=== PATIENT | female | born 2000 | race African-American/Black ===

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

== ENCOUNTER 2018-02-23 14:37 | Outpatient (CLI) | payer MEDICAID ==
[2018-02-23 15:43] LABS: APPEARANCE,URINE CLEAR; BILIRUBIN,URINE NEGATIVE (NEGATIVE); COLOR,URINE YELLOW; GLUCOSE, URINE NEGATIVE (NEGATIVE); KETONES,URINE 20 mg/dL (NEGATIVE); LEUKOCYTE ESTERASE,URINE LARGE (NEGATIVE); NITRITE,URINE NEGATIVE (NEGATIVE); PROTEIN,URINE NEGATIVE (NEGATIVE); URINE SPECIFIC GRAVITY 1.008; UROBILINOGEN,URINE NEGATIVE mg/dL (<2.0)
[2018-02-23 15:51] LABS: URINE AMPHETAMINES SCREEN NEGATIVE; URINE BARBITURATES SCREEN NEGATIVE; URINE BENZODIAZEPINES SCREEN NEGATIVE; URINE COCAINE SCREEN NEGATIVE; URINE MARIJUANA (THC) SCREEN NEGATIVE; URINE METHADONE SCREEN NEGATIVE; URINE PHENCYCLIDINE SCREEN NEGATIVE
== END 2018-02-23 16:10 | disposition home or self-care (01) ==
LOC: LC 14:37
PROVIDERS: ATTEND Obstetrics & Gynecology Gynecology
DX: O02.1 Missed abortion (principal); Z3A.20 20 weeks gestation of pregnancy
CPT/HCPCS: 80307; 81001

== ENCOUNTER 2018-02-26 10:48 | Inpatient (IN) | payer MEDICAID ==
[2018-02-26] MEDS ORDERED: PROMETHAZINE HCL INJ 25 MG/1 ML VIAL IV PRN (11:26)
[2018-02-26] MEDS ORDERED: MORPHINE SULFATE 10 MG/ML INJ IV PRN (11:26)
[2018-02-26 12:19] LABS: APPEARANCE,URINE SLIGHTLY-CLOUDY; BILIRUBIN,URINE NEGATIVE (NEGATIVE); COLOR,URINE YELLOW; GLUCOSE, URINE NEGATIVE (NEGATIVE); KETONES,URINE NEGATIVE (NEGATIVE); LEUKOCYTE ESTERASE,URINE LARGE (NEGATIVE); NITRITE,URINE NEGATIVE (NEGATIVE); PROTEIN,URINE NEGATIVE (NEGATIVE); URINE SPECIFIC GRAVITY 1.017; UROBILINOGEN,URINE NEGATIVE mg/dL (<2.0)
[2018-02-26] MEDS: RINGERS SOLUTION,LACTATED 1,000 ML IV PRN ×3 (12:20→19:46)
[2018-02-26 12:34] LABS: URINE AMPHETAMINES SCREEN NEGATIVE; URINE BARBITURATES SCREEN NEGATIVE; URINE BENZODIAZEPINES SCREEN NEGATIVE; URINE COCAINE SCREEN NEGATIVE; URINE MARIJUANA (THC) SCREEN NEGATIVE; URINE METHADONE SCREEN NEGATIVE; URINE PHENCYCLIDINE SCREEN NEGATIVE
[2018-02-26 13:31] LABS: ABSOLUTE EOSINOPHILS # (AUTO) 0.3 10^3/uL (0.0-0.6); ABSOLUTE LYMPHOCYTES (AUTO) 2.1 10^3/uL (0.5-4.7); ABSOLUTE MONOCYTES (AUTO) 0.8 10^3/uL (0.1-1.4); ABSOLUTE NEUT (AUTO) 8.2 10^3/uL (1.7-8.2); BASOPHILS % (AUTO) 0.3 % (0-2); EOSINOPHILS % (AUTO) 2.3 % (0-6); HEMATOCRIT 29.4 % (36.0-47.0); HEMOGLOBIN 10.2 g/dL (12.0-15.5); LYMPHOCYTES % (AUTO) 18.6 % (13-45); MEAN CORPUSCULAR HGB CONC 34.5 g/dL (32.0-36.0); MEAN CORPUSCULAR VOLUME 93 fl (80-97); PLATELET COUNT 310 10^3/uL (150-450); RED BLOOD COUNT 3.17 10^6/uL (3.72-5.28); RED CELL DISTRIBUTION WIDTH 13.8 % (11.5-14.0); SEGMENTED NEUTROPHILS % (AUTO) 71.8 % (42-78); TOTAL CELLS COUNTED % (AUTO) 100 %; WHITE BLOOD COUNT 11.4 10^3/uL (4.0-10.5)
--- NOTE | 2018-02-26 13:35 | Admission Physical ---
Datetime Report Generated by CPN: 02/26/2018 13:35 CURRENT ADMISSION Hx Assessment: The History has been Reviewed and is Current Chief Complaint Other: IUFD at 20 wks, pt sent over from the office for IOL Indication for Induction: Demise Admit Impression : Induction of Labor Admit Plan: Admit to Unit ALLERGIES Medication Allergies: No Medication Allergies: No Known Allergies (02/26/2018) Latex: No Latex Allergies Food Allergies: N/A Environmental Allergies: N/A OBSTETRICAL HISTORY EDC: 07/13/2018 00:00 : 1 Para: 0 Term: 0 : 0 SAB: 0 IAB: 0 Ectopic: 0 Livin Cesareans: 0 VBACs: 0 Multiple Births: 0 Gestational Diabetes: No Rh Sensitization: No Incompetent Cervix: No CLARISSE: No Infertility: No ART Treatment: No Uterine Anomaly: No IUGR: No Hx Previous C/S: No Macrosomia: No Hx Loss/Stillborn: No PIH: No Hx : No Placenta Previa/Abruption: No Depression/PP Depression: No PTL/PROM: No Post Hemorrhage: No Current Procedures: Ultrasound Obstetrical History Comments: G1- current , IUFD confirmed 02/23 at [facility] SEE RECORDS Alcohol: No Marijuana : No Cocaine: No Other Illicit Drugs: No Cigarettes: Never Smoker. 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: No Heart Disease: No Hosp/Surgery: No Autoimmune Disorder: No Anesthetic Complications: No Kidney Disease: No Abnormal Pap Smear: No Neuro/Epilepsy: No Psychiatric Disorders: No Other Medical Diseases: No Hepatitis/Liver Disease: No Significant Family History: No Varicosities/Phlebitis: No Trauma/Violence : No Thyroid Dysfunction: No INFECTIOUS HISTORY Gonorrhea: No Genital Herpes: No Chlamydia: No Tuberculosis: No Syphilis: No Hepatitis: No HIV/AIDS Exposure: No Rash or Viral Illness: No HPV: No PHYSICAL EXAM General: Normal HEENT: Normal Neurologic: Normal Thyroid: Normal Heart: Normal Lungs: Normal Breast: Normal Back: Normal Abdomen: Normal Genitourinary Exam: Normal Extremities: Normal DTRs: Normal Pelvic Type: Adequate Vital Signs: Reviewed; Within Normal Limits FETUS A Monitoring: External US FHR Comments: IUFD Admit Comment: Plan Cytotec IOL per Dr Pope who sent her over. Pt denies fever, chills, abdominal pain or leaking of amniotic fluid. Plan of care discussed with the patient and her mother. PLANS FOR LABOR AND DELIVERY Pain Management: Medications; Epidural INFORMED CONSENT Assignment: Jessica Salgado MD Signature: with User ID: [email or web address] : with User ID: [email or web address]
[2018-02-26] MEDS ORDERED: MISOPROSTOL 0.2 MG TABLET ONE ×3 (13:55→22:02)
[2018-02-26] MEDS ORDERED: MISOPROSTOL 0.1 MG TABLET PV SCH (14:00)
[2018-02-26 14:01] LABS: ALANINE AMINOTRANSFERASE 18 U/L (5-35); ALBUMIN 3.1 g/dL (3.7-5.6); ALKALINE PHOSPHATASE 87 U/L (50-135); ANION GAP 11 (5-19); ASPARTATE AMINO TRANSFERASE 18 U/L (5-30); BILIRUBIN,DIRECT 0.2 mg/dL (0.0-0.4); BILIRUBIN,TOTAL 0.2 mg/dL (0.2-1.3); BLOOD UREA NITROGEN 6 mg/dL (7-20); CALCIUM 9.3 mg/dL (8.4-10.2); CARBON DIOXIDE 22 mmol/L (22-30); CHLORIDE 107 mmol/L (98-107); GLUCOSE 77 mg/dL (75-110); SODIUM 140.4 mmol/L (137-145); TOTAL PROTEIN 6.5 g/dL (6.3-8.2)
[2018-02-26] MEDS: MISOPROSTOL 0.2 MG TABLET PV SCH ×3 (17:59→22:07)
[2018-02-26] MEDS ORDERED: ACETAMINOPHEN 325 MG TABLET PO ONE (18:56)
[2018-02-26] MEDS ORDERED: ACETAMINOPHEN 325 MG TABLET ONE (18:57)
[2018-02-26] MEDS ORDERED: EPHEDRINE SULFATE INJ 50 MG/1 ML AMPULE ONE (19:38)
[2018-02-26] MEDS ORDERED: FENTANYL/BUPIVACAINE/NS/PF 200 MCG/100 ML RTUINJ EPI ONE (19:39)
[2018-02-26] MEDS ORDERED: BUPIVACAINE HCL 0.5 % INJ/PF 30 ML SDV ONE (19:41)
[2018-02-27] MEDS ORDERED: MISOPROSTOL 0.2 MG TABLET ONE ×4 (02:36→15:29)
[2018-02-27] MEDS: RINGERS SOLUTION,LACTATED 1,000 ML IV PRN (02:41)
[2018-02-27] MEDS ORDERED: ACETAMINOPHEN 325 MG TABLET ONE ×3 (03:14→19:33)
[2018-02-27] MEDS ORDERED: ACETAMINOPHEN 325 MG TABLET PO ONE (03:30)
[2018-02-27] MEDS: MISOPROSTOL 0.2 MG TABLET PV SCH ×4 (03:37→20:28)
[2018-02-27] MEDS ORDERED: FENTANYL/BUPIVACAINE/NS/PF 200 MCG/100 ML RTUINJ EPI ONE ×2 (04:58→14:23)
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
[2018-02-27] MEDS ORDERED: AMPICILLIN SOD INJ 2 GM VIAL IM SCH (15:00)
[2018-02-27] MEDS ORDERED: AMPICILLIN SOD INJ 2 GM VIAL ONE ×2 (15:09→20:20)
--- NOTE | 2018-02-27 15:11 | L&D Progress Notes ---
PROGRESS NOTES Datetime Report Generated by CPN: 02/27/2018 15:11 PROGRESS NOTE Comment: Discussed temp and hx with Dr. Ricketts who agrees with repeat CBC at this time and starting ampicillin q6. Orders placed. FETUS C SIGNATURE: [id number];10,[id number] Assignment: Stevan Ricketts MD Signature: with User ID: [email or web address] : with User ID: [email or web address]
--- NOTE | 2018-02-27 15:56 | L&D Progress Notes ---
PROGRESS NOTES Datetime Report Generated by CPN: 02/27/2018 15:55 PROGRESS NOTE Impression Other: IUP @ 20w4d with IUFD-IOL stable Procedures: Sterile Vag Exam Procedures- Other: cruz balloon insertion Plan: Continue Present Management; Induction Informed Consent Obtained: Vaginal Delivery; Induction of Labor; Risks, Benefits and Alternatives Discussed Vital Signs : Reviewed; Within Normal Limits Comment: S: pt. comfortable reports no pain, tired desires nap at this time O: BP stable, fever, cervix as stated A: IOL @ 20w4d secondary to IUFD, Maternal fever-able to place cruz bulb without difficulty, P: continue IOl, will start pitocin at this time, started ampicillin 2g q6 for maternal temp. Dr. hopkins aware. Discussed plan with patient and family. VAGINAL EXAM Dilatation: 1 Effacement: 90 Station: -2 Contractions: irregular MEMBRANES Membranes: Intact FETUS C SIGNATURE: [id number];13,[id number] Assignment: Steavn Hopkins MD Signature: with User ID: [email or web address] : with User ID: [email or web address]
[2018-02-27] MEDS ORDERED: OXYTOCIN/NORMAL SALINE 20 UNIT/1,000 ML RTUINJ IV PRN ×2 (15:57→20:04)
[2018-02-27] MEDS ORDERED: OXYTOCIN/NORMAL SALINE 20 UNIT/1,000 ML RTUINJ ONE (16:10)
[2018-02-27 16:25] LABS: ABSOLUTE BASOPHILS # (AUTO) 0.1 10^3/uL (0.0-0.2); ABSOLUTE EOSINOPHILS # (AUTO) 0.2 10^3/uL (0.0-0.6); ABSOLUTE MONOCYTES (AUTO) 1.2 10^3/uL (0.1-1.4); ABSOLUTE NEUT (AUTO) 10.1 10^3/uL (1.7-8.2); BASOPHILS % (AUTO) 0.5 % (0-2); EOSINOPHILS % (AUTO) 1.3 % (0-6); HEMATOCRIT 27.8 % (36.0-47.0); HEMOGLOBIN 9.5 g/dL (12.0-15.5); LYMPHOCYTES % (AUTO) 14.9 % (13-45); MEAN CORPUSCULAR HEMOGLOBIN 31.6 pg (27.0-33.4); MEAN CORPUSCULAR HGB CONC 34.2 g/dL (32.0-36.0); MEAN CORPUSCULAR VOLUME 93 fl (80-97); MONOCYTES % (AUTO) 8.7 % (3-13); PLATELET COUNT 306 10^3/uL (150-450); RED CELL DISTRIBUTION WIDTH 13.6 % (11.5-14.0); SEGMENTED NEUTROPHILS % (AUTO) 74.6 % (42-78); TOTAL CELLS COUNTED % (AUTO) 100 %; WHITE BLOOD COUNT 13.5 10^3/uL (4.0-10.5)
[2018-02-27] MEDS ORDERED: ACETAMINOPHEN 650 MG SUPP.RECT PR PRN (20:04)
[2018-02-27] MEDS ORDERED: NA PHOS,M-B/NA PHOS,DI-BA (ADULT) 133 ML ENEMA PR PRN (20:04)
[2018-02-27] MEDS ORDERED: GLYCERIN/WITCH HAZEL LEAF 1 EACH MED..PAD TP PRN (20:04)
[2018-02-27] MEDS ORDERED: DIPH/PERTUSS(ACELL)/TETANUS VAC/PF 0.5 ML SYR (>=10YO) IM PRN (20:04)
[2018-02-27] MEDS ORDERED: ZOLPIDEM TARTRATE 5 MG TABLET PO PRN (20:04)
[2018-02-27] MEDS ORDERED: MEASLES,MUMPS&RUBELLA VACC/PF 0.5 ML VIAL SUBCUT PRN (20:04)
[2018-02-27] MEDS ORDERED: PROMETHAZINE HCL 25 MG SUPP.RECT PR PRN (20:04)
[2018-02-27] MEDS ORDERED: PSEUDOEPHEDRINE HCL 30 MG TABLET PO PRN (20:04)
[2018-02-27] MEDS ORDERED: PROMETHAZINE HCL INJ 25 MG/1 ML VIAL IV PRN (20:04)
[2018-02-27] MEDS ORDERED: MAGNESIUM HYDROXIDE SUSP 30 ML UDCUP PO PRN (20:04)
[2018-02-27] MEDS ORDERED: DIBUCAINE 1% OINTMENT 28 GM TP PRN (20:04)
[2018-02-27] MEDS ORDERED: PROMETHAZINE HCL 25 MG TABLET PO PRN (20:04)
[2018-02-27] MEDS ORDERED: ACETAMINOPHEN WITH CODEINE #3 TABLET PO PRN (20:04)
[2018-02-27] MEDS ORDERED: BENZOCAINE/MENTHOL AEROSOL SPRAY 56 ML TOP PRN (20:04)
[2018-02-27] MEDS ORDERED: DIPHENHYDRAMINE HCL 25 MG CAPSULE PO PRN (20:04)
--- NOTE | 2018-02-27 20:16 | PDOC DELIVERY SUMMARY ---
Delivery Summary - Maternal Risk Factors: Other Ruptured Membranes: SROM Fluids: Clear - Delivery Labor: Induction Presentation: Vertex, Breech Support Person Present: Yes Placenta: Within Normal Limits Nuchal Cord: No - Medications Type of Anesthesia:: Epidural - FDIU
[2018-02-27] MEDS ORDERED: FAMOTIDINE 20 MG TABLET PO SCH (22:00)
[2018-02-27] MEDS ORDERED: IBUPROFEN 800 MG TABLET ONE (22:34)
[2018-02-27] MEDS: IBUPROFEN 800 MG TABLET PO SCH (22:50)
[2018-02-28] MEDS ORDERED: AMPICILLIN SOD INJ 2 GM VIAL ONE ×2 (02:24→08:54)
[2018-02-28] MEDS: AMPICILLIN SOD INJ 2 GM VIAL IV SCH ×2 (02:46→10:33)
[2018-02-28] MEDS ORDERED: IBUPROFEN 800 MG TABLET ONE (05:52)
--- NOTE | 2018-02-28 06:45 | Delivery Summary ---
Del Sum A-C Datetime Report Generated by CPN: 02/28/2018 06:44 DELIVERY PERSONNEL DELIVERY PERSONNEL: [id number] Delivery Doctor:: Stevan Ricketts MD Labor and Delivery Nurse:: Taco Motta RNstraightening machine operator Nurse:: Felicita Moses RN Additional Personnel: : Arnulfo Lopez RN MATERNAL INFORMATION Delivery Anesthesia: Epidural Medications After Delivery: Pitocin Bolus-Please Comment Maternal Complications: Other Other Maternal Complications: Cooks catheter spontaniously expelled fetus followed immediately behind bulb. Complication Details: IUFD LABOR SUMMARY EDC: 07/13/2018 00:00 No. Babies in Womb: 1 Attempted: No Labor Anesthesia: Epidural LABOR INFORMATION Reason for Induction: Demise Reason for Induction- Other: IUFD Onset of Labor: 02/27/2018 15:42 Complete Dilatation: 02/27/2018 19:07 Cervical Ripening Agents: Engle Balloon; Cytotec @ Oxytocin: Augmentation Steroids Given: None Reason Steroids Not Administered: Not Applicable MEMBRANES Membranes Rupture Method: Artificial Rupture of Membranes: 02/27/2018 19:05 Length of Rupture (hr): 0.03 Amniotic Fluid Amount: Small Amniotic Fluid Odor: Normal STAGES OF LABOR Stage 1 hr: 3 Stage 1 min: 25 Stage 2 hr: 0 Stage 2 min: 0 Stage 3 hr: 1 Stage 3 min: 3 Total Time in Labor hr: 4 Total Time in Labor min: 28 VAGINAL DELIVERY Episiotomy: None Laceration #1: None Laceration Extension #1: N/A Laceration Repair: Not Applicable Sponge Count Correct: N/A CSECTION DELIVERY Primary Indication: N/A Secondary Indication: N/A CSection Urgency: n/a CSection Incidence: n/a Labor: n/a Elective: n/a CSection Incision: N/A BABY A INFORMATION Infant Delivery Date/Time: 02/27/2018 19:07 Method of Delivery: Vaginal Born in Route : No : N/A Forceps: N/A Vacuum Extraction: N/A Shoulder Dystocia : No PRESENTATION/POSITION BABY A Presentation: Breech Cephalic Presentation: N/A Breech Presentation: Double Footling PLACENTA INFORMATION BABY A Placenta Delivery Time : 02/27/2018 20:10 (Annotations: Data stored by [facility] on behalf of user) Placenta Method of Delivery: Expressed Placenta Status: Delivered SCORES BABY A Heart Rate 1 min: Absent Resp Effort 1 min: Absent Reflex Irritability 1 min: No Response Muscle Tone 1 min: Flaccid Color 1 min: Blue/Pale Resuscitation Effort 1 min: N/A SCORE 1 MIN: 0 Heart Rate 5 min: Absent Resp Effort 5 min: Absent Reflex Irritability 5 min: No Response Muscle Tone 5 min: Flaccid Color 5 min: Blue/Pale Resuscitation Effort 5 min: N/A SCORE 5 MIN: 0 INFANT INFORMATION BABY A Gestational Age at Delivery: 20.4 Gestational Status: - <34 Weeks Outcome : Stillborn Sex: Male WEIGHT/LENGTH BABY A Infant Birthweight (gm): 217 Weight (lb): 0 Weight (oz): 8 Length (in): 8.50 Infant Length (cm): 21.59 CORD INFORMATION BABY A Nuchal Cord : N/A Suction: None ASSESSMENT BABY A Complications: Other Physical Findings at Delivery: Other BABY B INFORMATION : N/A SIGNATURES Signature: with User ID: [email or web address]
[2018-02-28 07:53] LABS: HEMATOCRIT 27.6 % (36.0-47.0); HEMOGLOBIN 9.3 g/dL (12.0-15.5); MEAN CORPUSCULAR HEMOGLOBIN 31.1 pg (27.0-33.4); MEAN CORPUSCULAR HGB CONC 33.7 g/dL (32.0-36.0); MEAN CORPUSCULAR VOLUME 93 fl (80-97); PLATELET COUNT 291 10^3/uL (150-450); RED BLOOD COUNT 2.99 10^6/uL (3.72-5.28); RED CELL DISTRIBUTION WIDTH 13.7 % (11.5-14.0); WHITE BLOOD COUNT 17.7 10^3/uL (4.0-10.5)
[2018-02-28] MEDS ORDERED: CEFTRIAXONE INJ 500 MG VIAL IM ONE (09:51)
[2018-02-28] MEDS ORDERED: LIDOCAINE 1% INJ-PF (10 MG/ML) 30 ML SDV INJ ONE (09:51)
[2018-02-28] MEDS ORDERED: CEFTRIAXONE INJ 1000 MG VIAL ONE (09:57)
[2018-02-28] MEDS ORDERED: LIDOCAINE 1% INJ-PF (10 MG/ML) 30 ML SDV ONE (09:57)
[2018-02-28] MEDS ORDERED: FERROUS SULFATE 325 MG TABLET PO SCH (10:00)
[2018-02-28] MEDS ORDERED: SENNOSIDES/DOCUSATE 8.6-50 MG 1 EACH TABLET PO SCH (10:00)
[2018-02-28] MEDS ORDERED: DOCUSATE SODIUM 100 MG CAPSULE PO SCH (10:00)
[2018-02-28] MEDS ORDERED: PRENATAL VITAMIN W DHA CAPSULE PO SCH (10:00)
[2018-02-28 13:40] VITALS: BP 128/79
[2018-02-28] MEDS: IBUPROFEN 800 MG TABLET PO SCH (14:53)
== END 2018-02-28 14:35 | disposition home or self-care (01) | DRG 775 ==
LOC: LR 10:48
PROVIDERS: ADMIT Obstetrics & Gynecology Gynecology; ATTEND Obstetrics & Gynecology Gynecology
PROC: 3E0P7VZ Introduction of Hormone into Female Reproductive, Via Natural or Artificial Opening (ICD-10-PCS; 2018-02-26)
PROC: 10E0XZZ Delivery of Products of Conception, External Approach (ICD-10-PCS; principal; 2018-02-27)
DX: O36.4XX0 Maternal care for intrauterine death, not applicable or unspecified (principal); Z3A.20 20 weeks gestation of pregnancy; Z37.1 Single stillbirth
CPT/HCPCS: 36415; 80053; 80307; 81001; 85025; 85027; 86592; 86850; 86900; 86901; 88305; 94760; C1726; J0290; J0696; J2590; J3490

== ENCOUNTER 2018-03-27 14:10 | Emergency (ER) | payer MEDICAID ==
[2018-03-27] MEDS ORDERED: IBUPROFEN 800 MG TABLET PO ONE (15:20)
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
[2018-03-27] MEDS ORDERED: ACETAMINOPHEN 325 MG TABLET PO ONE (15:22)
[2018-03-27 15:50] LABS: APPEARANCE,URINE SLIGHTLY-CLOUDY; BILIRUBIN,URINE NEGATIVE (NEGATIVE); COLOR,URINE YELLOW; GLUCOSE, URINE NEGATIVE (NEGATIVE); KETONES,URINE NEGATIVE (NEGATIVE); LEUKOCYTE ESTERASE,URINE TRACE (NEGATIVE); NITRITE,URINE NEGATIVE (NEGATIVE); PROTEIN,URINE 100 mg/dL (NEGATIVE); URINE SPECIFIC GRAVITY 1.023; UROBILINOGEN,URINE NEGATIVE mg/dL (<2.0)
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
== END 2018-03-27 16:26 | disposition home or self-care (01) ==
LOC: ER 14:10
DX: S00.83XA Contusion of other part of head, initial encounter (principal); S50.01XA Contusion of right elbow, initial encounter; S60.512A Abrasion of left hand, initial encounter; Y04.2XXA Assault by strike against or bumped into by another person, initial encounter; Y93.89 Activity, other specified; Y92.000 Kitchen of unspecified non-institutional (private) residence as the place of occurrence of the external cause; Y92.008 Other place in unspecified non-institutional (private) residence as the place of occurrence of the external cause
CPT/HCPCS: 99284; 81025; 81001; 73070; 70110; J3490

== ENCOUNTER → 2019-03-16 | Outpatient (CLI) | payer SELFPAY ==
[2019-03-16 13:22] LABS: BACTERIA (WET MOUNT) 4+ BACTERIA SEEN; EPITHELIALS (WET MOUNT) 4+ EPITHELIALS SEEN; RBCS (WET MOUNT) 1+ RBCS SEEN; T.VAGINALIS (WET MOUNT) NO TRICHOMONAS SEEN; WBCS (WET MOUNT) 3+ WBCS SEEN; YEAST (WET MOUNT) NO YEAST SEEN
[2019-03-16 13:32] LABS: AMORPHOUS SEDIMENT,URINE TRACE /HPF; APPEARANCE,URINE SLIGHTLY-CLOUDY; BILIRUBIN,URINE NEGATIVE (NEGATIVE); COLOR,URINE YELLOW; GLUCOSE, URINE NEGATIVE (NEGATIVE); KETONES,URINE NEGATIVE (NEGATIVE); LEUKOCYTE ESTERASE,URINE LARGE (NEGATIVE); NITRITE,URINE NEGATIVE (NEGATIVE); PROTEIN,URINE NEGATIVE (NEGATIVE); URINE SPECIFIC GRAVITY 1.006; UROBILINOGEN,URINE NEGATIVE mg/dL (<2.0)
[2019-03-16 14:53] LABS: CHLAM PCR NOT DETECTED (NOT DETECT)
== END ==
LOC: LAB 12:50
PROVIDERS: ATTEND Nurse Practitioner Family
DX: Z20.2 Contact with and (suspected) exposure to infections with a predominantly sexual mode of transmission (principal); R30.0 Dysuria
CPT/HCPCS: 81001; 87086; 87088; 87210; 87491; 87591

== ENCOUNTER 2019-04-04 23:24 | Emergency (ER) | payer SELFPAY ==
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
[2019-04-05 00:32] LABS: ABSOLUTE EOSINOPHILS # (AUTO) 0.1 10^3/uL (0.0-0.6); ABSOLUTE LYMPHOCYTES (AUTO) 1.3 10^3/uL (0.5-4.7); ABSOLUTE MONOCYTES (AUTO) 0.8 10^3/uL (0.1-1.4); ABSOLUTE NEUT (AUTO) 9.4 10^3/uL (1.7-8.2); BASOPHILS % (AUTO) 0.2 % (0-2); EOSINOPHILS % (AUTO) 0.6 % (0-6); HEMATOCRIT 40.1 % (36.0-47.0); HEMOGLOBIN 13.4 g/dL (12.0-15.5); LYMPHOCYTES % (AUTO) 11.5 % (13-45); MEAN CORPUSCULAR HEMOGLOBIN 31.2 pg (27.0-33.4); MEAN CORPUSCULAR HGB CONC 33.5 g/dL (32.0-36.0); MEAN CORPUSCULAR VOLUME 93 fl (80-97); MONOCYTES % (AUTO) 6.9 % (3-13); PLATELET COUNT 269 10^3/uL (150-450); RED CELL DISTRIBUTION WIDTH 13.6 % (11.5-14.0); SEGMENTED NEUTROPHILS % (AUTO) 80.8 % (42-78); TOTAL CELLS COUNTED % (AUTO) 100 %; WHITE BLOOD COUNT 11.7 10^3/uL (4.0-10.5)
[2019-04-05 01:03] LABS: ALBUMIN 4.7 g/dL (3.5-5.0); ALKALINE PHOSPHATASE 97 U/L (38-126); ANION GAP 11 (5-19); ASPARTATE AMINO TRANSFERASE 30 U/L (14-36); BILIRUBIN,DIRECT 0.1 mg/dL (0.0-0.4); BILIRUBIN,TOTAL 0.7 mg/dL (0.2-1.3); BLOOD UREA NITROGEN 7 mg/dL (7-20); CALCIUM 10.3 mg/dL (8.4-10.2); CARBON DIOXIDE 23 mmol/L (22-30); CHLORIDE 104 mmol/L (98-107); GLUCOSE 108 mg/dL (75-110); POTASSIUM 3.7 mmol/L (3.6-5.0); TOTAL PROTEIN 8.9 g/dL (6.3-8.2)
[2019-04-05 01:40] LABS: APPEARANCE,URINE SLIGHTLY-CLOUDY; BILIRUBIN,URINE NEGATIVE (NEGATIVE); COLOR,URINE YELLOW; GLUCOSE, URINE NEGATIVE (NEGATIVE); KETONES,URINE 20 mg/dL (NEGATIVE); LEUKOCYTE ESTERASE,URINE SMALL (NEGATIVE); NITRITE,URINE NEGATIVE (NEGATIVE); PROTEIN,URINE 30 mg/dL (NEGATIVE); URINE SPECIFIC GRAVITY 1.008; UROBILINOGEN,URINE NEGATIVE mg/dL (<2.0)
--- NOTE | 2019-04-05 02:44 | RADIOLOGY REPORT (SQ) ---
CLINICAL HISTORY: RUQ pain COMPARISON: None. TECHNIQUE: US ABDOMEN LIMITED on 04/05/2019 2:03 AM CDT FINDINGS: Liver is normal in echotexture. Portal vein is patent. Gallbladder is normally distended without wall thickening or cholecystic fluid. Common bile duct measures 1.5 mm. Right kidney measures 9.6 cm without hydronephrosis. IMPRESSION: Unremarkable study.
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
[2019-04-05 03:48] VITALS: BP 113/71
== END 2019-04-05 03:48 | disposition home or self-care (01) ==
LOC: ER 23:24
DX: O26.91 Pregnancy related conditions, unspecified, first trimester (principal); R10.11 Right upper quadrant pain; R10.30 Lower abdominal pain, unspecified; Z3A.01 Less than 8 weeks gestation of pregnancy
CPT/HCPCS: 36415; 76705; 80053; 81001; 84702; 85025; 87086; 87088

== ENCOUNTER → 2019-04-19 | Outpatient (CLI) | payer SELFPAY ==
--- NOTE | 2019-04-19 14:55 | RADIOLOGY REPORT (SQ) ---
EXAM DESCRIPTION: U/S [id number] TRNABD 1GES W/ODOP COMPLETED DATE/TIME: 04/19/2019 1:23 pm REASON FOR STUDY: ENCTR FOR SUPERVISION OF OTHER NORMAL , 1ST TRIMESTER (Z34.81) Z34.81 EN COUNTER FOR SUPRVSN OF NORMAL , FIRST TRIM COMPARISON: None. TECHNIQUE: Transvaginal static and realtime grayscale images acquired of the pelvis. Additional josephine cted spectral and color Doppler images recorded. All images stored on PACs. bHCG: Not available CLINICAL DATES: LMP 03/02/2019. 6 weeks 6 days. LIMITATIONS: None. FINDINGS: FETUS: Single Living intrauterine . ULTRASOUND EGA: 7 weeks 2 days. ULTRASOUND XI: 12/04/2019 EFW: Not applicable less than 20 weeks. CRL: 1.2 cm. FHR: 127 beats per minute. SURVEY: Too early to assess. AMNIOTIC FLUID: Adequate amount. PLACENTA: Not yet developed due to early gestation. SUBCHORIONIC BLEED: No SIZE OF BLEED: Not applicable. UTERUS: No masses. No anomalies. CERVICAL LENGTH: 4 cm. Closed. RIGHT ADNEXA: Normal ovary with normal vascular flow. 2.1 x 1.5 x 2.6 cm. No adnexal free fluid. No adnexal masses. LEFT ADNEXA: Normal ovary with normal vascular flow. 3.1 x 1.6 x 2 cm. No adnexal free fluid. No adnexal masses. FREE FLUID: None. OTHER: No other significant finding. IMPRESSION: LIVING INTRAUTERINE . EGA 7 weeks 2 days. Trimester of : First trimester - 0 to 13 weeks. TECHNICAL DOCUMENTATION: JOB ID: [id number]- All Rights Reserved rev Reading location - IP/workstation name: [email or web address]
== END ==
LOC: RAD 12:50
PROVIDERS: ATTEND Midwife
DX: Z34.81 Encounter for supervision of other normal pregnancy, first trimester (principal)
CPT/HCPCS: 76801

== ENCOUNTER 2019-09-17 23:41 | Emergency (ER) | payer MEDICAID ==
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
[2019-09-18 03:13] LABS: ABSOLUTE EOSINOPHILS # (AUTO) 0.1 10^3/uL (0.0-0.6); ABSOLUTE LYMPHOCYTES (AUTO) 1.7 10^3/uL (0.5-4.7); ABSOLUTE MONOCYTES (AUTO) 1.1 10^3/uL (0.1-1.4); ABSOLUTE NEUT (AUTO) 15.4 10^3/uL (1.7-8.2); BASOPHILS % (AUTO) 0.2 % (0-2); EOSINOPHILS % (AUTO) 0.5 % (0-6); HEMATOCRIT 31.5 % (36.0-47.0); HEMOGLOBIN 10.9 g/dL (12.0-15.5); LYMPHOCYTES % (AUTO) 9.3 % (13-45); MEAN CORPUSCULAR HEMOGLOBIN 33.7 pg (27.0-33.4); MEAN CORPUSCULAR HGB CONC 34.8 g/dL (32.0-36.0); MEAN CORPUSCULAR VOLUME 97 fl (80-97); MONOCYTES % (AUTO) 5.9 % (3-13); PLATELET COUNT 215 10^3/uL (150-450); RED BLOOD COUNT 3.25 10^6/uL (3.72-5.28); RED CELL DISTRIBUTION WIDTH 13.8 % (11.5-14.0); SEGMENTED NEUTROPHILS % (AUTO) 84.1 % (42-78); TOTAL CELLS COUNTED % (AUTO) 100 %; WHITE BLOOD COUNT 18.3 10^3/uL (4.0-10.5)
[2019-09-18 03:19] LABS: APPEARANCE,URINE SLIGHTLY-CLOUDY; BILIRUBIN,URINE NEGATIVE (NEGATIVE); COLOR,URINE YELLOW; GLUCOSE, URINE NEGATIVE (NEGATIVE); KETONES,URINE NEGATIVE (NEGATIVE); URINE SPECIFIC GRAVITY 1.019
[2019-09-18 03:20] LABS: LEUKOCYTE ESTERASE,URINE TRACE (NEGATIVE); NITRITE,URINE NEGATIVE (NEGATIVE); PROTEIN,URINE NEGATIVE (NEGATIVE); UROBILINOGEN,URINE NEGATIVE mg/dL (<2.0)
[2019-09-18 03:25] LABS: ALBUMIN 3.3 g/dL (3.5-5.0); ALKALINE PHOSPHATASE 95 U/L (38-126); ANION GAP 7 (5-19); ASPARTATE AMINO TRANSFERASE 24 U/L (14-36); BILIRUBIN,TOTAL 0.3 mg/dL (0.2-1.3); BLOOD UREA NITROGEN 7 mg/dL (7-20); CALCIUM 9.1 mg/dL (8.4-10.2); CARBON DIOXIDE 21 mmol/L (22-30); CHLORIDE 108 mmol/L (98-107); GLUCOSE 104 mg/dL (75-110); POTASSIUM 4.2 mmol/L (3.6-5.0); TOTAL PROTEIN 6.8 g/dL (6.3-8.2)
[2019-09-18 03:35] LABS: URINE AMPHETAMINES SCREEN NEGATIVE; URINE BARBITURATES SCREEN NEGATIVE; URINE BENZODIAZEPINES SCREEN NEGATIVE; URINE COCAINE SCREEN NEGATIVE; URINE MARIJUANA (THC) SCREEN NEGATIVE; URINE METHADONE SCREEN NEGATIVE; URINE PHENCYCLIDINE SCREEN NEGATIVE
[2019-09-18] MEDS ORDERED: CEPHALEXIN 500 MG CAPSULE PO ONE (04:03)
[2019-09-18] MEDS ORDERED: OXYCODONE-ACETAMINOPHEN 5-325 MG TABLET PO ONE (04:03)
[2019-09-18 04:11] VITALS: BP 129/76
== END 2019-09-18 04:35 | disposition home or self-care (01) ==
LOC: ER 23:41
DX: O9A.213 Injury, poisoning and certain other consequences of external causes complicating pregnancy, third trimester (principal); S02.85XA Fracture of orbit, unspecified, initial encounter for closed fracture; S02.40DA Maxillary fracture, left side, initial encounter for closed fracture; S06.9X9A Unspecified intracranial injury with loss of consciousness of unspecified duration, initial encounter; R53.1 Weakness; F41.9 Anxiety disorder, unspecified; Y04.2XXA Assault by strike against or bumped into by another person, initial encounter; Y92.009 Unspecified place in unspecified non-institutional (private) residence as the place of occurrence of the external cause
CPT/HCPCS: 36415; 70450; 72125; 80053; 80307; 81001; 85025; 99285

== ENCOUNTER 2019-12-07 08:36 | Inpatient (IN) | payer MEDICAID ==
[2019-12-07 09:01] LABS: APPEARANCE,URINE CLEAR; BILIRUBIN,URINE NEGATIVE (NEGATIVE); COLOR,URINE YELLOW; GLUCOSE, URINE NEGATIVE (NEGATIVE); KETONES,URINE NEGATIVE (NEGATIVE); LEUKOCYTE ESTERASE,URINE MODERATE (NEGATIVE); NITRITE,URINE NEGATIVE (NEGATIVE); PROTEIN,URINE NEGATIVE (NEGATIVE); URINE SPECIFIC GRAVITY 1.014; UROBILINOGEN,URINE NEGATIVE mg/dL (<2.0)
[2019-12-07 09:18] LABS: URINE AMPHETAMINES SCREEN NEGATIVE; URINE BARBITURATES SCREEN NEGATIVE; URINE BENZODIAZEPINES SCREEN NEGATIVE; URINE COCAINE SCREEN NEGATIVE; URINE MARIJUANA (THC) SCREEN NEGATIVE; URINE METHADONE SCREEN NEGATIVE; URINE PHENCYCLIDINE SCREEN NEGATIVE
[2019-12-07] MEDS ORDERED: RINGERS SOLUTION,LACTATED 1,000 ML IV ONE (10:39)
[2019-12-07 11:07] LABS: ABSOLUTE EOSINOPHILS # (AUTO) 0.2 10^3/uL (0.0-0.6); ABSOLUTE LYMPHOCYTES (AUTO) 1.8 10^3/uL (0.5-4.7); ABSOLUTE MONOCYTES (AUTO) 0.9 10^3/uL (0.1-1.4); ABSOLUTE NEUT (AUTO) 10.2 10^3/uL (1.7-8.2); BASOPHILS % (AUTO) 0.2 % (0-2); EOSINOPHILS % (AUTO) 1.7 % (0-6); HEMATOCRIT 36.8 % (36.0-47.0); HEMOGLOBIN 12.4 g/dL (12.0-15.5); LYMPHOCYTES % (AUTO) 13.7 % (13-45); MEAN CORPUSCULAR HEMOGLOBIN 32.7 pg (27.0-33.4); MEAN CORPUSCULAR HGB CONC 33.8 g/dL (32.0-36.0); MEAN CORPUSCULAR VOLUME 97 fl (80-97); MONOCYTES % (AUTO) 7.1 % (3-13); PLATELET COUNT 192 10^3/uL (150-450); RED BLOOD COUNT 3.81 10^6/uL (3.72-5.28); RED CELL DISTRIBUTION WIDTH 15.6 % (11.5-14.0); SEGMENTED NEUTROPHILS % (AUTO) 77.3 % (42-78); TOTAL CELLS COUNTED % (AUTO) 100 %; WHITE BLOOD COUNT 13.1 10^3/uL (4.0-10.5)
[2019-12-07] MEDS ORDERED: OXYTOCIN/0.9 % SODIUM CHLORIDE 30 UNIT/500 ML RTUINJ ONE (11:10)
[2019-12-07] MEDS ORDERED: MISOPROSTOL 0.2 MG TABLET ONE (11:10)
[2019-12-07] MEDS ORDERED: LIDOCAINE 1% INJ-PF (10 MG/ML) 30 ML SDV ONE (11:10)
[2019-12-07] MEDS ORDERED: OXYTOCIN 10 UNIT/ML VIAL ONE (11:10)
[2019-12-07] MEDS ORDERED: EPHEDRINE SULFATE INJ 50 MG/1 ML AMPULE ONE (12:38)
[2019-12-07] MEDS ORDERED: FENTANYL/BUPIVACAINE/NS/PF 300 MCG/150 ML RTUINJ EPI ONE (12:39)
[2019-12-07] MEDS ORDERED: BUPIVACAINE HCL 0.25 % INJ/PF (2.5 MG/1 ML) 30 ML VIAL ONE (12:39)
[2019-12-07] MEDS: RINGERS SOLUTION,LACTATED 1,000 ML IV PRN (13:28)
[2019-12-07] MEDS ORDERED: OXYTOCIN/0.9 % SODIUM CHLORIDE 30 UNIT/500 ML RTUINJ IV PRN (15:00)
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
[2019-12-08] MEDS ORDERED: CITRIC ACID/SODIUM CITRATE ORAL SOLN 15 ML UDCUP ONE (02:20)
[2019-12-08] MEDS ORDERED: LIDOCAINE 2% INJ-PF (20 MG/ML) 10 ML AMPUL ONE (02:20)
[2019-12-08] MEDS ORDERED: CEFAZOLIN INJ 1 GM VIAL ONE (02:22)
[2019-12-08] MEDS ORDERED: CEFAZOLIN 1 GM/D5W RTU 1 GM/50 ML RTUPB IV ONE (02:22)
[2019-12-08] MEDS ORDERED: KETOROLAC TROMETHAMINE INJ/PF 30 MG/1 ML SDV ONE ×2 (02:35→05:32)
[2019-12-08] MEDS ORDERED: OXYTOCIN/0.9 % SODIUM CHLORIDE 30 UNIT/500 ML RTUINJ ONE (02:35)
[2019-12-08] MEDS ORDERED: FENTANYL CITRATE INJ/PF 100 MCG/2 ML AMPUL ONE ×2 (02:35→04:43)
[2019-12-08] MEDS ORDERED: OXYTOCIN 10 UNIT/ML VIAL ONE ×2 (02:35→02:38)
[2019-12-08] MEDS ORDERED: MIDAZOLAM 2 MG/2 ML INJ ONE (02:35)
[2019-12-08] MEDS ORDERED: GLYCOPYRROLATE INJ 0.4 MG/2 ML VIAL ONE (02:35)
[2019-12-08] MEDS ORDERED: ONDANSETRON HCL INJ/PF 4 MG/2 ML SDV ONE (02:36)
[2019-12-08] MEDS ORDERED: METHYLERGONOVINE MALEATE INJ/PF 0.2 MG/1 ML AMPULE ONE (02:38)
[2019-12-08] MEDS ORDERED: MISOPROSTOL 0.2 MG TABLET ONE (02:38)
[2019-12-08] MEDS ORDERED: CARBOPROST TROMETHAMINE INJ 250 MCG/1 ML AMPULE ONE (02:38)
[2019-12-08] MEDS ORDERED: SIMETHICONE 80 MG TAB.CHEW PO PRN (03:33)
[2019-12-08] MEDS ORDERED: PROMETHAZINE HCL INJ 25 MG/1 ML VIAL IV PRN (03:33)
[2019-12-08] MEDS ORDERED: OXYTOCIN/0.9 % SODIUM CHLORIDE 30 UNIT/500 ML RTUINJ IV PRN (03:33)
[2019-12-08] MEDS ORDERED: MEASLES,MUMPS&RUBELLA VACC/PF 0.5 ML VIAL SUBCUT PRN (03:33)
[2019-12-08] MEDS ORDERED: HYDROMORPHONE HCL INJ/PF 2 MG/ML AMPULE IV PRN (03:33)
[2019-12-08] MEDS ORDERED: RINGERS SOLUTION,LACTATED 1,000 ML IV PRN (03:33)
[2019-12-08] MEDS ORDERED: ACETAMINOPHEN 1,000 MG/100 ML RTUPB IV PRN (03:33)
[2019-12-08] MEDS ORDERED: DIPH/PERTUSS(ACELL)/TETANUS VAC/PF 0.5 ML SYR (>=10YO) IM PRN (03:33)
[2019-12-08] MEDS ORDERED: OXYCODONE-ACETAMINOPHEN 5-325 MG TABLET PO PRN (03:33)
[2019-12-08] MEDS ORDERED: ACETAMINOPHEN 325 MG TABLET PO PRN (03:33)
[2019-12-08] MEDS ORDERED: PIPERACILLIN/TAZOBACTAM 3.375 GM VIAL IV PRN (03:34)
[2019-12-08] MEDS ORDERED: METHYLERGONOVINE MALEATE INJ/PF 0.2 MG/1 ML AMPULE IM ONE (03:35)
[2019-12-08] MEDS ORDERED: MISOPROSTOL 0.1 MG TABLET PR ONE (03:35)
--- NOTE | 2019-12-08 03:41 | Brief Operative Note ---
BRIEF OPERATIVE REPORT DATE OF SURGERY: 12/08/19 TIME OF SURGERY: 03:00 PREOPERATIVE DIAGNOSIS: , h/o IUFD, 40+1ega, Meconium, Non reassuring FHRTs POSTOPERATIVE DIAGNOSIS: EFREM - delivered, Chorioamnionitis SURGEON: BROWN WALSH FINDINGS: VMI delivered at 0253, Weight 3870g (8#9oz), APgars 8/9, IVF 800ml, UOP 100ml, EBL 800ml, Intrauterine Methergine given introp due to very boggy lower uterine segment. QBL 690ml COMPLICATIONS: atony, chorio ESTIMATED BLOOD LOSS: 800ml TISSUE REMOVED OR ALTERED: placenta and cord sent to pathology TECHNICAL PROCEDURE: Primary Section.
[2019-12-08] MEDS: PIPERACILLIN SODIUM/TAZOBACTAM 3.375 GM in NORMAL SALINE 100 ML IV SCH ×4 (04:08→21:05)
[2019-12-08] MEDS ORDERED: MORPHINE SULFATE 10 MG/ML INJ ONE (04:15)
--- NOTE | 2019-12-08 05:27 | Delivery Summary ---
Del Sum A-C Datetime Report Generated by CPN: 12/08/2019 05:27 DELIVERY PERSONNEL DELIVERY PERSONNEL: [id number] Delivery Doctor:: Gloria Best MD Anesthesiologist:: MD Chance LOCAL TRUCK DRIVER:: Wale Normile, LOCAL TRUCK DRIVER Labor and Delivery Nurse:: Eliane German RN Neonatal Nurse Practitioner:: MORTEZA Gomez Disability Manager/PRACTICE BILLING ASSOCIATE: ST Cordell Disability Manager/PRACTICE BILLING ASSOCIATE: Pura Strauss, ST MATERNAL INFORMATION Delivery Anesthesia: Epidural Medications After Delivery: Pitocin 30 Units in 500ml NS/D5W; Cytotec 1000mcg Per Rectum/Vagina Delivery QBL: 690 Maternal Complications: Chorioamnionitis LABOR SUMMARY EDC: 12/07/2019 00:00 No. Babies in Womb: 1 Attempted: No Labor Anesthesia: Epidural LABOR INFORMATION Reason for Induction: Not Applicable Oxytocin: Augmentation Group B Beta Strep: Negative Antibiotics # of Doses: N/A Antibiotics Time of Last Dose: N/A Name of Antibiotic Given: N/A Steroids Given: None Reason Steroids Not Administered: Not Applicable MEMBRANES Membranes Rupture Method: Spontaneous Rupture of Membranes: 12/07/2019 16:33 Length of Rupture (hr): 10.33 Amniotic Fluid Color: Light Meconium Amniotic Fluid Amount: Moderate Amniotic Fluid Odor: Normal STAGES OF LABOR Stage 3 hr: 0 Stage 3 min: 1 VAGINAL DELIVERY Episiotomy: None Laceration #1: None Laceration Extension #1: N/A Laceration Repair: Not Applicable Sharps Count Correct: N/A CSECTION DELIVERY Primary Indication: Nonreassuring Status Secondary Indication: Secondary Arrest of Dilatation CSection Urgency: Non-Scheduled CSection Incidence: Primary Labor: Labor Elective: Nonelective CSection Incision: Lower Uterine Transverse BABY A INFORMATION Delivery Date/Time: 12/08/2019 02:53 Method of Delivery: Nurse Controlled Delivery: No Born in Route : No : N/A Forceps: N/A Vacuum Extraction: N/A Shoulder Dystocia : No PRESENTATION/POSITION BABY A Presentation: Cephalic Cephalic Presentation: Vertex Vertex Position: Left Occipital Anterior Breech Presentation: N/A PLACENTA INFORMATION BABY A Placenta Delivery Time : 12/08/2019 02:54 Placenta Method of Delivery: Manual Removal Placenta Status: Delivered SCORES BABY A Heart Rate 1 min: >100 bpm Resp Effort 1 min: Good Cry Reflex Irritability 1 min: Cough or Sneeze or Pulls Away Muscle Tone 1 min: Active Motion Color 1 min: Blue/Pale Resuscitation Effort 1 min: Tactile Stimulation SCORE 1 MIN: 8 Heart Rate 5 min: >100 bpm Resp Effort 5 min: Good Cry Reflex Irritability 5 min: Cough or Sneeze or Pulls Away Muscle Tone 5 min: Active Motion Color 5 min: Body [place], Extremities Blue SCORE 5 MIN: 9 INFANT INFORMATION BABY A Gestational Age at Delivery: 40.1 Gestational Status: Full Term- 39- 40.6 Weeks Outcome : Liveborn Infant Condition : Stable Infant Sex: Male IDENTIFICATION BABY A Infant Verification Date/Time: 12/08/2019 03:23 ID Band Number: [id number] Mother's Name Verified: Yes RN Verifying Infant: Geoff Cruz, RN Additional Verifying Personnel: Misty Sethi RN WEIGHT/LENGTH BABY A Birthweight (gm): 3870 Infant Weight (lb): 8 Infant Weight (oz): 9 Length (in): 21.50 Length (cm): 54.61 CORD INFORMATION BABY A No. Cord Vessels: 3 Nuchal Cord : Around Neck x1, Loose Cord Blood Taken: Yes-For Eval (Mom's Blood Type - or O+) Infant Suction: Mouth; Nose ASSESSMENT BABY A Complications: Multiple Variable Decels Physical Findings- Other: See full nursery event management consultant Skin to Skin: Yes Skin to Skin Time (min): 20 Gear Straightener/ALS Called : Yes BABY B INFORMATION : N/A
[2019-12-08] MEDS: KETOROLAC TROMETHAMINE INJ/PF 30 MG/1 ML SDV IV SCH ×2 (05:33→14:11)
--- NOTE | 2019-12-08 05:36 | Operative Report ---
Operative Report SURGEON: BROWN WALSH ANESTHESIA: Epidural PROCEDURE: Anesthesia provider: [] Estimated blood loss: [] Urine output: [] IV fluids: [] Complications: [None] Specimens: [None] Findings: [] Indications: [] Procedure: The patient was taken to the operating room where spinal anesthesia was obtained and found to be adequate. She was then prepped and draped in the normal sterile fashion and placed in the dorsal supine position with a leftward tilt. A Pfannenstiel skin incision was then made and carried through to the underlying layers of the fascia with the scalpel. The fascia was incised in the midline and the incision extended laterally with the [place] scissors. The superior aspect of the fascial incision was then grasped with [place] clamps elevated and the underlying rectus muscles dissected off [bluntly]. Attention was then turned to the inferior aspect of the fascial incision which in a similar fashion was grasped, tented up with Damian clamps, and the rectus muscles dissected off [bluntly]. The rectus muscles were then in the midline and the peritoneum at the amount identified and entered [bluntly]. The peritoneal incision was then extended superiorly and inferiorly with good visualization of the bladder. The bladder blade was inserted and the vesicouterine peritoneum identified grasped with [place] pickups and entered sharply with the Metzenbaum scissors. This incision was then extended laterally with the Metzenbaum scissors and a bladder flap created digitally. The bladder blade was then reinserted and the lower uterine segment incised in a transverse fashion with the scalpel. The uterine incision was then extended bluntly. The bladder blade was removed and the 's head was delivered from cephalic presentation atraumatically. The nose and mouth were suctioned and the cord doubly clamped and cut. And the was handed off to waiting pediatricians. The placenta was then delivered spontaneously and the uterus exteriorized and cleared of all clots and debris. The uterine incision was then repaired with 1- 0 Vicryl in a running locked fashion. A second layer of the same suture was used to obtain hemostasis via imbrication of the initial layer. The bladder flap was then repaired with 3-0 chromic in a running fashion. The uterus was returned to the patient's abdomen and Interceed was placed overlying the uterine incision to prevent adhesions. The gutters were cleared of all clots and debris. All operative sites were noted to be hemostatic. The fascia was reapproximated with 0 Vicryl in a running fashion from each lateral edge to the midline. The skin was closed with 3-0 Monocryl in a running subcuticular fashion with overlying Dermabond for additional dressing as well as wound closure. The patient tolerated the procedure well. Sponge lap needle and instrument counts are correct -2. 2 g of Ancef were given prior to skin incision. The patient was taken to the recovery area awake and in stable condition.
[2019-12-08] MEDS ORDERED: PIPERACILLIN/TAZOBACTAM 3.375 GM VIAL IV SCH (06:00)
[2019-12-08] MEDS: RINGERS SOLUTION,LACTATED 1,000 ML IV PRN (06:45)
[2019-12-08] MEDS: PRENATAL VITAMIN W DHA CAPSULE PO SCH (09:25)
[2019-12-08] MEDS: DOCUSATE SODIUM 100 MG CAPSULE PO SCH ×2 (09:25→17:26)
--- NOTE | 2019-12-08 11:30 | PDOC PROGRESS REPORT ---
Subjective-OB Progress Note for:: 12/08/19 Subjective: Pt doing well, no concerns. She has not been out of bed yet. FC to BSD. Reports adequate pain control. Physical Exam (OB) Vital Signs: Temp Pulse Resp BP Pulse Ox 97.9 F 98 16 128/74 H 84 L 12/08/19 10:24 12/08/19 10:24 12/08/19 10:24 12/08/19 10:24 12/08/19 10:24 Intake & Output 12/07/19 12/08/19 12/09/19 06:59 06:59 06:59 Intake Total 1100 300 Output Total 300 Balance 1100 0 Weight 80.2 kg - PIH/Pre-Eclampsia Clonus: Negative Headache: Absent Epigastric Pain: No Visual Changes: No - Dressing Removed: No Incision: Well Approximated Closure Type: Surgical Glue - Lochia Lochia Amount: Scant < 10 ml Lochia Color: Rubra/Red - Abdomen Description: Soft, Round Hernia Present: No Fundal Description: Firm, Midline Fundal Height: u/u - u/2 Objective-Diagnostic Laboratory: 12/07/19 10:53 12/07/19 10:53 Blood Type O POSITIVE Antibody Screen NEGATIVE Assessment and Plan(PN) - Assessment and Plan (1) Active labor at term Is this a current diagnosis for this admission?: Yes (2) Chorioamnionitis Qualifiers: Fetus number: single or unspecified fetus Trimester: unspecified trimester Qualified Code(s): O41.1290 - Chorioamnionitis, unspecified trimester, not a pplicable or unspecified Is this a current diagnosis for this admission?: Yes (3) Meconium in amniotic fluid Is this a current diagnosis for this admission?: Yes (4) Non-reassuring electronic monitoring tracing Is this a current diagnosis for this admission?: Yes (5) S/P primary low transverse Is this a current diagnosis for this admission?: Yes - Time Spent with Patient Time with patient: Less than 15 minutes Medications reviewed and adjusted accordingly: Yes
[2019-12-08] MEDS: IBUPROFEN 800 MG TABLET PO SCH ×2 (17:26→23:29)
[2019-12-08] MEDS: OXYCODONE-ACETAMINOPHEN 5-325 MG TABLET PO PRN (20:12)
[2019-12-09] MEDS: OXYCODONE-ACETAMINOPHEN 5-325 MG TABLET PO PRN ×3 (03:13→23:10)
[2019-12-09] MEDS: PIPERACILLIN SODIUM/TAZOBACTAM 3.375 GM in NORMAL SALINE 100 ML IV SCH ×2 (03:15→09:35)
[2019-12-09] MEDS: IBUPROFEN 800 MG TABLET PO SCH ×4 (06:04→23:54)
[2019-12-09 07:15] LABS: HEMATOCRIT 30.5 % (36.0-47.0); HEMOGLOBIN 10.4 g/dL (12.0-15.5); MEAN CORPUSCULAR HEMOGLOBIN 32.8 pg (27.0-33.4); MEAN CORPUSCULAR HGB CONC 33.9 g/dL (32.0-36.0); MEAN CORPUSCULAR VOLUME 97 fl (80-97); PLATELET COUNT 162 10^3/uL (150-450); RED BLOOD COUNT 3.16 10^6/uL (3.72-5.28); RED CELL DISTRIBUTION WIDTH 15.9 % (11.5-14.0); WHITE BLOOD COUNT 20.5 10^3/uL (4.0-10.5)
--- NOTE | 2019-12-09 08:55 | PDOC PROGRESS REPORT ---
Subjective-OB Progress Note for:: 12/09/19 Subjective: sitting up in bed on pphone, visitor in the other bed, feeling ok, OOB to BR Physical Exam (OB) Vital Signs: Temp Pulse Resp BP Pulse Ox 97.7 F 76 18 141/68 H 90 L 12/09/19 07:25 12/09/19 07:25 12/09/19 07:25 12/09/19 07:25 12/09/19 07:25 Intake & Output 12/08/19 12/09/19 12/10/19 06:59 06:59 06:59 Intake Total 1100 3580 Output Total 2004 Balance 1100 1575 Weight 80.2 kg - PIH/Pre-Eclampsia Clonus: Negative Headache: Absent Epigastric Pain: No Visual Changes: No - Dressing Removed: No Incision: Well Approximated Closure Type: Surgical Glue - Lochia Lochia Amount: Scant < 10 ml Lochia Color: Rubra/Red - Abdomen Description: Tender, Soft Hernia Present: No Fundal Description: Firm, Midline Fundal Height: u/u - u/2 Objective-Diagnostic Laboratory: 12/09/19 06:29 12/09/19 06:29 WBC 20.5 H RBC 3.16 L Hgb 10.4 L Hct 30.5 L MCV 97 MCH 32.8 MCHC 33.9 RDW 15.9 H Plt Count 162 Assessment and Plan(PN) - Assessment and Plan (1) S/P primary low transverse Is this a current diagnosis for this admission?: Yes (2) Non-reassuring electronic monitoring tracing Is this a current diagnosis for this admission?: Yes (3) Chorioamnionitis Qualifiers: Fetus number: single or unspecified fetus Trimester: unspecified trimester Qualified Code(s): O41.1290 - Chorioamnionitis, unspecified trimester, not applicable or unspecified Is this a current diagnosis for this admission?: Yes (4) Meconium in amniotic fluid Is this a current diagnosis for this admission?: Yes (5) Active labor at term Is this a current diagnosis for this admission?: Yes - Time Spent with Patient Time with patient: Less than 15 minutes Medications reviewed and adjusted accordingly: Yes - Disposition Anticipated Discharge: Home Within: within 48 hours
[2019-12-09] MEDS: DOCUSATE SODIUM 100 MG CAPSULE PO SCH ×2 (09:35→17:43)
[2019-12-09] MEDS: PRENATAL VITAMIN W DHA CAPSULE PO SCH (09:35)
[2019-12-09] MEDS ORDERED: MEASLES,MUMPS&RUBELLA VACC/PF 0.5 ML VIAL SUBCUT PRN (11:30)
[2019-12-09] MEDS ORDERED: PROMETHAZINE HCL INJ 25 MG/1 ML VIAL IV PRN (11:30)
[2019-12-09 15:21] LABS: RHOGAM DOSE INDICATED 0 VIAL(S)
[2019-12-10] MEDS: IBUPROFEN 800 MG TABLET PO SCH ×2 (06:03→12:32)
[2019-12-10] MEDS: OXYCODONE-ACETAMINOPHEN 5-325 MG TABLET PO PRN (07:58)
[2019-12-10 08:16] VITALS: BP 135/75
--- NOTE | 2019-12-10 09:51 | PDOC DISCHARGE SUMMARY ---
Impression - Admit/DC Date/PCP Admission Date/Primary Care Provider: 12/07/19 10:46 BROWN WALSH MD Discharge Date: 12/10/19 - POD #2, doing well, denies fever,chills, malaise, UOB, ambulating, O+, Rubella Immune, breast/bottlefeeding - Additional Information Resuscitation Status: Full Code Discharge Diet: As Tolerated, Regular Discharge Activity: Activity As Tolerated, No Driving, No Lifting Over 10 Pounds, Pelvic Rest Referrals: BROWN WALSH MD [Primary Care Provider] - Prescriptions: Ibuprofen [Motrin 800 mg Tablet] 800 mg PO Q6 #60 tablet Oxycodone HCl/Acetaminophen [Percocet 5-325 mg Tablet] 1 tab PO Q4HP PRN #30 tablet PRN Reason: Pain Scale Of 4 Home Medications: Vits96/Iron Fum/Folic [ Tablet] 1 each PO DAILY 12/07/19 Ibuprofen [Motrin 800 mg Tablet] 800 mg PO Q6 #60 tablet 12/10/19 Oxycodone HCl/Acetaminophen [Percocet 5-325 mg Tablet] 1 tab PO Q4HP PRN #30 tablet 12/10/19 HPI Reason(s) for Admission: Onset of Labor, Obstetric Complications Procedures: Management of Obstetric Complications, Other - chorio noted, Primary for intolerance to labor Intrapartum Procedure(s): : Low Cervical, Transverse Results Laboratory Results: WBC 20.5 10^3/uL (4.0-10.5) H 12/09/19 06:29 RBC 3.16 10^6/uL (3.72-5.28) L 12/09/19 06:29 Hgb 10.4 g/dL (12.0-15.5) L 12/09/19 06:29 Hct 30.5 % (36.0-47.0) L 12/09/19 06:29 MCV 97 fl (80-97) 12/09/19 06:29 MCH 32.8 pg (27.0-33.4) 12/09/19 06:29 MCHC 33.9 g/dL (32.0-36.0) 12/09/19 06:29 RDW 15.9 % (11.5-14.0) H 12/09/19 06:29 Plt Count 162 10^3/uL (150-450) 12/09/19 06:29 Lymph % (Auto) 13.7 % (13-45) 12/07/19 10:53 [place] % (Auto) 7.1 % (3-13) 12/07/19 10:53 Eos % (Auto) 1.7 % (0-6) 12/07/19 10:53 Baso % (Auto) 0.2 % (0-2) 12/07/19 10:53 Absolute Neuts (auto) 10.2 10^3/uL (1.7-8.2) H 12/07/19 10:53 Absolute Lymphs (auto) 1.8 10^3/uL (0.5-4.7) 12/07/19 10:53 Absolute Monos (auto) 0.9 10^3/uL (0.1-1.4) 12/07/19 10:53 Absolute Eos (auto) 0.2 10^3/uL (0.0-0.6) 12/07/19 10:53 Absolute Basos (auto) 0.0 10^3/uL (0.0-0.2) 12/07/19 10:53 Seg Neutrophils % 77.3 % (42-78) 12/07/19 10:53 Fetomaternal Hemorrhag 0 ML (0) 12/09/19 08:50 Kleihauer-Betke Stain NEGATIVE (NEGATIVE) 12/09/19 08:50 Urine Color YELLOW 12/07/19 08:40 Urine Appearance CLEAR 12/07/19 08:40 Urine pH 7.0 (5.0-9.0) 12/07/19 08:40 Ur Specific [place] 1.014 12/07/19 08:40 Urine Protein NEGATIVE mg/dL (NEGATIVE) 12/07/19 08:40 Urine Glucose (UA) NEGATIVE mg/dL (NEGATIVE) 12/07/19 08:40 Urine Ketones NEGATIVE mg/dL (NEGATIVE) 12/07/19 08:40 Urine Blood NEGATIVE (NEGATIVE) 12/07/19 08:40 Urine Nitrite NEGATIVE (NEGATIVE) 12/07/19 08:40 Urine Bilirubin NEGATIVE (NEGATIVE) 12/07/19 08:40 Urine Urobilinogen NEGATIVE mg/dL (<2.0) 06/06/20 08:40 Ur Leukocyte Esterase MODERATE (NEGATIVE) H 12/07/19 08:40 Urine Ascorbic Acid NEGATIVE (NEGATIVE) 12/07/19 08:40 Membranes Rupture NEGATIVE (NEGATIVE) 12/07/19 08:41 Urine Opiates Screen NEGATIVE 12/07/19 08:40 Urine Methadone Screen NEGATIVE 12/07/19 08:40 Ur Barbiturates Screen NEGATIVE 12/07/19 08:40 Ur Phencyclidine Scrn NEGATIVE 12/07/19 08:40 Ur Amphetamines Screen NEGATIVE 12/07/19 08:40 U Benzodiazepines Scrn NEGATIVE 12/07/19 08:40 Urine Cocaine Screen NEGATIVE 12/07/19 08:40 U Marijuana (THC) Screen NEGATIVE 12/07/19 08:40 RPR NONREACTIVE (NONREACTIVE) 12/07/19 10:53 Blood Type O POSITIVE 12/09/19 06:29 Antibody Screen NEGATIVE 12/07/19 10:53 Screen NEGATIVE 12/09/19 06:29 Rhogam Indicated Cancelled 12/09/19 06:29 Plan Plan of Treatment: d/c home, follow up for incision check in one week Time Spent: Less than 30 Minutes
[2019-12-10] MEDS: PRENATAL VITAMIN W DHA CAPSULE PO SCH (09:54)
[2019-12-10] MEDS: DOCUSATE SODIUM 100 MG CAPSULE PO SCH (09:54)
== END 2019-12-10 13:02 | disposition home or self-care (01) | DRG 788 ==
LOC: LC 08:36 → LR 10:46 → 2S 12-08 05:58
PROVIDERS: ADMIT Student in an Organized Health Care Education/Training Program; ATTEND Student in an Organized Health Care Education/Training Program
PROC: 10D00Z1 Extraction of Products of Conception, Low, Open Approach (ICD-10-PCS; principal; 2019-12-08)
DX: O41.1230 Chorioamnionitis, third trimester, not applicable or unspecified (principal); O77.0 Labor and delivery complicated by meconium in amniotic fluid; Z37.0 Single live birth; O62.1 Secondary uterine inertia; O26.893 Other specified pregnancy related conditions, third trimester; Z3A.40 40 weeks gestation of pregnancy; O76 Abnormality in fetal heart rate and rhythm complicating labor and delivery; O69.81X0 Labor and delivery complicated by cord around neck, without compression, not applicable or unspecified; Z87.59 Personal history of other complications of pregnancy, childbirth and the puerperium; Z67.41 Type O blood, Rh negative
CPT/HCPCS: 1967; 1968; 36415; 80307; 81005; 84112; 85025; 85027; 85460; 85461; 86592; 86850; 86900; 86901; 88307; 94760; 94799; C1758; J0690; J1170; J1885; J2210; J2250; J2270; J2405; J2543; J2590; J2790; J3010; J3490; J7050; J7120